=== PATIENT | female | born 1955 | race Caucasian/White ===

== ENCOUNTER 2017-03-06 12:42 | Inpatient (IN) ==
[2017-03-06] MEDS ORDERED: ONDANSETRON 4 MG/2 ML VIAL IV PRN (15:30)
--- NOTE | 2017-03-06 16:03 | Neurology Consult Note ---
History of Present Illness History of present illness: Ms. Dang is a 61 year old right-handed white lady with past medical history significant for ulcerative colitis admitted to the hospital with paraparesis and gait disorder. Apparently patient has been developing a 5 week history of lower extremity numbness and weakness. Patient received treatment with Humira after second dose she started developing ascending numbness paresthesias and weakness. After a couple of days she noticed numbness up to the chest below the breast line. She says this is been progressive. She initially started using a cane now requires a walker to get around. She goes to see Dr. Ellis for ulcerative colitis. A nerve conduction study/EMG is within normal limits. MRI of the thoracic spine reveals extensive a spinal cord signal suggestive of possible inflammatory process. For that reason she was admitted to the hospital and MRI of the brain and cervical spine was performed last night. MRI of the brain revealed diffuse periventricular white matter changes and one in the area may have some enhancement suggestive of inflammatory process MRI of the cervical spine did not reveal much pathology. 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 She is on high-dose of Solu-Medrol now. Home Medications Medication Instructions Recorded Confirmed Type Propranolol Tab [Inderal Tab] 20 mg PO TID 12/01/15 03/06/17 History Quetiapine Fumarate 50 mg PO BEDTIME 12/01/15 03/06/17 History Mesalamine [Apriso] 4 capsule PO DAILY 01/05/16 03/06/17 History Multivitamin [One Daily] 1 each PO DAILY 01/05/16 03/06/17 History Allergies Allergy/AdvReac Type Severity Reaction Status Date / Time Amoxicillin [From Amoxil] Allergy RASH Verified 02/24/17 14:27 morphine Allergy RASH Verified 02/24/17 14:27 Penicillins Allergy RASH Verified 01/05/16 12:24 12 point system: reviewed and no additional remarkable complaints except as stated Medical,Surgical,& Family Hx - Medical History Cardio: History of: Valvular Heart Disease (Mirtral valve prolaspe) Neurology: No history of: Seizures Gastrointestinal: History of: GI Problems (Ulcerative Colitis) - Surgical History Neurologic Surgeries: Patient denies: Neurologic Surgery Abdominal Surgeries: Surgical HX of: Colonoscopy Reproductive Surgeries: Surgical HX of;: Section, Hysterectomy - Family History Family History: Reports;: Family Heart Disease Denies;: Family Anesthesia Reaction, Family Cancer, Family Diabetes, Family Hypertension, Family Psychiatric Problems, Family Stroke - Social History Smoking Status: Never smoker Frequency of Alcohol Use: None Type of Drug Use: None Exam - Constitutional Exam: GENERAL: Patient is in no acute distress. NECK: Neck is supple. There is no JVD. No carotid bruits present. No thyroid masses. CVS: First and second heart sounds are normal. There is no S3 present. Regular rate and rhythm. RESPIRATORY: Lungs are clear to auscultation without any rales or rhonchi. ABDOMEN: Soft and non-tender. Bowel sounds are present. There is no hepatosplenomegaly. EXT: There is no palpable edema. Peripheral pulses are present. Skin: No rashes Central Nervous system: General: Alert, awake and Oriented x 3 Speech: Fluent Comprehension: Intact and normal Facial expressions: Normal Cranial Nerves: CN1/Olfactory: Normal CN II/ Optic: Normal, Visual Mckee unreliable CN III, and : MAGNUS & EOMI CN V: Normal & intact CN VII: face is symmetric CNVIII: Normal CN XI/X/XI/XII: Intact and Normal Motor: Bulk and Tone is normal. Strength in the right 3-4/5 Strength in the left 3-4/5 Sensory: Decreased with a sensory level at T4 Reflexes: Brisk and symmetrical Cerebellar function: Normal finger to nose and heel to camargo testing. Toes: Equivocal Gait: Significantly spastic gait and cannot walk without DME Results - Labs CBC & BMP: 03/06/17 15:55 03/06/17 15:55 Assessment and Plan (1) Gait disorder Status: Acute Assessment and plan: Given the history, annual exam and MRI findings the differential would include acute disseminated encephalomyelitis versus multiple sclerosis. Continue IV Solu-Medrol Spinal tap HIV test Consult PT and OT Consult TMR Thank you for the consult Current Visit: Yes
[2017-03-06 16:17] LABS: Basophils % 0.4 % (0.0-0.8); Eosinophils # 0.1 10*3/uL (0.0-0.87); Eosinophils % 0.7 % (0.00-10.9); Hematocrit 40.9 VOL% (35.7-47.0); Hemoglobin 14.2 GM/DL (12.0-16.0); Immature Granulocytes % 0.2 %; Immature Granulocytes Absolute 0.02 #; Lymphocytes # 3.3 10*3/uL (1.4-4.0); Lymphocytes % 40.3 % (21.3-54.2); Mean Corpuscular HGB Conc 34.7 GM/DL (32-36); Mean Corpuscular Hemoglobin 33 PG (27-34); Mean Corpuscular Volume 93.6 FL (87-102); Mean Platelet Volume 10.2 FL (9.6-12.0); Monocytes # 0.7 10*3/uL (0.11-0.8); Monocytes % 8.2 % (1.7-12.7); Neutrophils # 4.2 10*3/uL (1.4-7.4); Neutrophils % 50.2 % (38.7-73.9); Platelet Count 197 T/CUMM (130-400); Red Blood Count 4.37 MC/CUMM (3.8-5.5); Red Cell Distribution Width 11.7 % (9.3-17.3); White Blood Count 8.3 T/CUMM (4-12)
--- NOTE | 2017-03-06 16:39 | Hospitalist History & Physical ---
Assessment and Plan (1) History of ulcerative colitis Status: Acute Current Visit: Yes (2) Transverse myelitis Status: Acute Current Visit: Yes (3) Lower extremity weakness Status: Acute Current Visit: Yes (4) Lower extremity numbness Status: Acute Assessment and plan: Our plan for this patient 1. Admit patient our service 2. IV Solu-Medrol 3. Neurology consult 4. MRI of brain with and without 5. MRI cervical spine with and without 6. LP and diagnostic studies of spinal fluid 7. Plans are subject to the approval and adjustment by Dr. Ch Current Visit: Yes History of Present Illness Chief complaint: Lower extremity numbness and weakness History of present illness: Ms. Dang is a 61 year old female with past medical history consists consistent for ulcerative colitis and mitral valve prolapse who was sent over from Dr. Nathan Parker's office. Apparently patient has been developing a 5 week history of lower extremity numbness and weakness that this starts at approximately T12 and below. She says this is been progressive. She initially started using a cane now requires a walker to get around. She goes to see Dr. Guthrie for ulcerative colitis and originally they thought it was her marrow that she had been taking. It was stopped 4 weeks ago. She had a MRI done yesterday and one the differential diagnosis includes transverse myelitis patient was seen in clinic today by Dr. Ch and then we were requested to admit the patient. Patient reports that she has had a nerve conduction study last week Home Medications Medication Instructions Recorded Confirmed Type Propranolol Tab [Inderal Tab] 20 mg PO TID 12/01/15 03/06/17 History Quetiapine Fumarate 50 mg PO BEDTIME 12/01/15 03/06/17 History Mesalamine [Apriso] 4 capsule PO DAILY 01/05/16 03/06/17 History Multivitamin [One Daily] 1 each PO DAILY 01/05/16 03/06/17 History Allergies Allergy/AdvReac Type Severity Reaction Status Date / Time Amoxicillin [From Amoxil] Allergy RASH Verified 02/24/17 14:27 morphine Allergy RASH Verified 02/24/17 14:27 Penicillins Allergy RASH Verified 01/05/16 12:24 Medical,Surgical,& Family Hx - Medical History Cardio: History of: Valvular Heart Disease (Mirtral valve prolaspe) Neurology: No history of: Seizures Gastrointestinal: History of: GI Problems (Ulcerative Colitis) - Surgical History Neurologic Surgeries: Patient denies: Neurologic Surgery Abdominal Surgeries: Surgical HX of: Colonoscopy Reproductive Surgeries: Surgical HX of;: Section, Hysterectomy - Family History Family History: Reports;: Family Heart Disease Denies;: Family Anesthesia Reaction, Family Cancer, Family Diabetes, Family Hypertension, Family Psychiatric Problems, Family Stroke - Social History Smoking Status: Never smoker Frequency of Alcohol Use: None Type of Drug Use: None 12 point system: reviewed and no additional remarkable complaints except as stated Exam - Constitutional General appearance: normal weight - Head Head exam: Present: normal inspection - Eye Eye exam: Present: EOMI Pupils: Present: MAGNUS - ENT ENT exam: Present: normal exam - Neck Neck exam: Present: normal inspection - Respiratory Respiratory exam: Present: clear to auscultation bilaterally - Cardiovascular Cardiovascular exam: Present: regular rate and rhythm - GI/Abdominal GI/Abdominal exam: Present: normal bowel sounds - Extremities Exam Extremities exam: Present: normal inspection - Back Exam Back exam: Present: normal inspection - Neurological Exam Neurological exam: Present: other (Patient has numbness sensation going from her abdomen down to her feet. She is definitely weaker in extension and flexion of her lower extremities more predominantly on the right than the left. Patient has difficulty moving her toes on her right foot as compared to her left. 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
[2017-03-06 16:50] LABS: Albumin 4.3 G/DL (3.4-5.0); Bilirubin,Total 0.5 MG/DL (0.2-1.0); Calcium 9.5 MG/DL (8.5-10.1)
[2017-03-06 16:51] LABS: Osmolality,Calculated 282.3 MOS/KG (273-304); Potassium 3.8 MMOL/L (3.5-5.1)
[2017-03-06] MEDS: methylPREDNISolone SOD SUC INJ 1,000 MG in SODIUM CHLORIDE 0.9% 100 ML IV SCH (18:30)
--- NOTE | 2017-03-06 18:36 | Magnetic Resonance Report ---
MR cervical spine wo/w con Indication: Abnormal imaging. Comparison: MRI thoracic spine 03/06/2017. Technique: Multisequence multiplanar MR imaging of the cervical spine was performed prior to and following the administration of intravenous contrast. Findings: Again demonstrated within the cervical spinal cord, most noticeable posterior to the T1 thoracic vertebral body and C6-7 interspace as well as C4-5 interspace, areas of increased intramedullary signal are again apparent. Additional smaller foci are suggested T4. These don't distinctly expand the spinal cord. Following administration of intravenous contrast, there is evidence of enhancement most noticeable involving the lesion at C7. No significant narrowing of intervertebral disc space is present within the cervical spine. At C2-3, there is no evidence of significant central or neuroforaminal stenosis. At C3-4, left facet greater than right facet hypertrophic changes are present as are left greater than right uncovertebral joint osteophytes. Moderate stenosis of the left neuroforamen, minimal stenosis of the right neuroforamen, and no significant central stenosis are present. At C4-5, there is no evidence of significant central or neuroforaminal stenosis. At C5-6, moderately size right uncovertebral joint osteophyte and mild symmetric facet arthropathy are demonstrated. Moderate right neuroforaminal stenosis, minimal left neural foraminal stenosis, and minimal central stenosis are present. At C6-7, small left uncovertebral joint osteophyte is present. Mild stenosis of the left neuroforamen is present. No significant right neuroforaminal stenosis or central stenosis is demonstrated. At C7-T1, there is no evidence of significant central or neuroforaminal stenosis. The thyroid gland and anterior soft tissues and musculature of the neck demonstrate no significant abnormalities. The posterior paraspinous musculature is within normal limits. The arterial flow voids demonstrate no significant abnormalities. The other smaller lesions cephalad the T1 lesion may demonstrate minimal enhancement. This enhancement is most noticeable within the lateral cervical spinal cord at the C6 vertebral body level and bilateral cervical spinal cord at C5-6. Additional peripheral focus of enhancement on the right posterior to C4, C3-4 interspace, is demonstrated. Impression: 1. Areas of hyperintense signal present within the intramedullary spinal cord most noticeable posterior to T1, but additionally present as detailed appear to have longitudinal orientation and somewhat ill-defined margins. No distinct expansion of the goiter cystic changes are present. Differential considerations could include sarcoidosis, transverse myelitis, and multiple sclerosis. Other considerations could include acute disseminated encephalomyelitis, HIV, neoplasm is favored to be less likely. 03/06/2017 6:23 PM PROCEDURE INTERPRETED AT [facility] DEPARTMENT OF RADIOLOGY Final Report Signed by: Dr. Sukhdev Noonan
--- NOTE | 2017-03-06 18:40 | Magnetic Resonance Report ---
MR head/brain w and wo con Indication: Transverse myelitis. Comparison: CT head 02/24/2017. MRI cervical spine same date. Technique: Using 1.5 Latricia magnet, multisequence multiplanar MR imaging of the brain was performed prior to and following the administration of intravenous contrast. Findings: There are no areas of restricted diffusion within the brain. The sagittal T1 sequence demonstrates corpus callosum to be intact. The pituitary gland and optic nerves demonstrate no significant abnormalities. Cerebellar tonsils are slightly low-lying. Axial sequences demonstrate scattered foci of increased T2 and FLAIR signal throughout the cerebral white matter some of which within the anterior right frontal white matter are somewhat more focal. No associated blooming is demonstrated. No intraocular lesions are clearly demonstrated. No intra-axial contrast enhancement sequences were provided, somewhat limiting evaluation for enhancement. There does appear to be some enhancement within the white matter within the posterior right cerebral hemisphere as demonstrated on sagittal image #16. Sagittal FLAIR sequence demonstrates vertical orientation of some of the above lesions. No coronal contrast enhanced sequences were provided. Evaluation of the optic nerve is significantly limited. Increased T2 and FLAIR signal additionally present within the ru. The calvarium, paranasal sinuses, intraorbital contents, arterial flow voids, and the imaged muscles of mastication are unremarkable. Impression: 1. Significant limitation exists secondary to lack of inclusion of axial and/or coronal T1 postcontrast sequences. There may be a small focus of enhancement within the white matter of the posterior right cerebral hemisphere. Multiple white matter lesions are noted on axial T2 and FLAIR sequences most suggestive in this setting given the findings within the spinal cord of demyelinating disease. Active demyelination not excluded. Optic nerves cannot be evaluated. 03/06/2017 6:33 PM PROCEDURE INTERPRETED AT [facility] DEPARTMENT OF RADIOLOGY Final Report Signed by: Dr. Sukhdev Noonan
[2017-03-06] MEDS: PROPRANOLOL 20 MG TABLET PO SCH (21:23)
[2017-03-06] MEDS: QUEtiapine 25 MG TABLET PO SCH (21:24)
[2017-03-07] MEDS: ACETAMINOPHEN 325 MG TABLET PO PRN ×2 (01:39→14:53)
[2017-03-07] MEDS: MULTIVITAMIN (CENTRUM) TABLET PO SCH (08:38)
[2017-03-07] MEDS: PANTOPRAZOLE 40 MG TABLET PO SCH (08:38)
[2017-03-07] MEDS: PROPRANOLOL 20 MG TABLET PO SCH ×3 (08:38→20:17)
[2017-03-07 11:14] LABS: Appearance,CSF Clear; Lymphocytes,CSF 99 %; Monocytes,CSF 1 %; Red Blood Cell,CSF < 1 C/CUMM; White Blood Cell,CSF 133 C/CUMM
[2017-03-07 11:40] LABS: HIV Antigen/Antibody Result Nonreactive (Nonreactive)
--- NOTE | 2017-03-07 12:21 | Hospitalist Progress Note ---
Assessment and Plan - Time spent with patient Time spent with patient: Greater than 30 minutes (1) Transverse myelitis Status: Acute Assessment and plan: MRIs reviewed. Neurology consulted. Appreciate their recommendations. Current Visit: Yes Hospitalist: Subjective Interval history: Admitted for evaluation of MRI findings after having complaints of progressively worsening LE weakness. Patient states she feels better in general. LE weakness hasn't improved however. Exam - Constitutional Vitals: Period Temp Pulse Resp BP Sys/Kruse Pulse Ox Last 24 Hr 96.1 F-98.9 F 91-103 16-20 117-130/78-85 96-97 General appearance: no acute distress - Head Head exam: Present: normocephalic, atraumatic - Eye Eye exam: Present: EOMI Pupils: Present: MAGNUS - ENT ENT exam: Present: normal exam - Neck Neck exam: Present: normal inspection - Respiratory Respiratory exam: Present: clear to auscultation bilaterally. Absent: rhonchi, wheezes - Cardiovascular Cardiovascular exam: Present: regular rate and rhythm. Absent: gallop, rubs, systolic murmur - GI/Abdominal GI/Abdominal exam: Present: normal bowel sounds, soft. Absent: distended, firm , guarding, tenderness, rebound - Extremities Exam Extremities exam: Present: normal inspection. Absent: calf tenderness, edema Results - Labs CBC & BMP: 03/06/17 15:55 03/06/17 15:55 Lab Results: I have reviewed the past 24 hour labs
--- NOTE | 2017-03-07 12:23 | Post Interventional Procedure ---
Pre-op diagnosis: Transverse myelitis Post-op diagnosis: same Procedure: Fluoroscopy guided lumbar puncture Flouroscopy: 0.5 minutes Radiologist: Fidelina Valles Order Takers Supervisor: Angel White Anesthesia: local Specimens: other (9.5 ml clear CSF collected) Estimated blood loss: none Complications: none Condition: stable Description/Findings: Formal timeout was performed. The patient was placed prone on the fluoroscopy table. The low back was prepped and draped in a sterile fashion. A midline lumbar puncture was then performed at the L3-L4 interspace using a 20-gauge spinal needle. Fluoroscopic guidance was used and a captured image documents the needle position. An opening pressure of 7.5 cm water was obtained. 9.5 cc clear, colorless CSF was withdrawn and sent to laboratory. Needle was removed and a bandage placed the puncture site. Fluoroscopy time: 0.5 minutes. Assessment and Plan - Time spent with patient Time spent with patient: Less than 30 minutes
--- NOTE | 2017-03-07 14:06 | Interventional Radiology Rpt ---
History: Transverse myelitis Date: 03/07/2017 Study: Fluoroscopy guided lumbar puncture Comparison exam: No previous similar Lumbar puncture with fluoroscopy Description: Formal timeout was performed. The patient was placed prone on the fluoroscopy table. The low back was prepped and draped in a sterile fashion. A midline lumbar puncture was then performed at the L3-L4 interspace using a 20-gauge spinal needle. Fluoroscopic guidance was used and a captured image documents the needle position. An opening pressure of 7.5 cm water was obtained. 9.5 cc clear, colorless CSF was withdrawn and sent to laboratory. Needle was removed and a bandage placed the puncture site. Fluoroscopy time: 0.5 minutes. Fluoroscopic images captured and archived: 1 Impression: Lumbar puncture as described. PROCEDURE INTERPRETED AT [facility] DEPARTMENT OF RADIOLOGY Final Report Signed by: Dr. Fidelina Valles
[2017-03-07] MEDS: methylPREDNISolone SOD SUC INJ 1,000 MG in SODIUM CHLORIDE 0.9% 100 ML IV SCH (17:05)
[2017-03-07] MEDS: QUEtiapine 25 MG TABLET PO SCH (20:17)
[2017-03-08 06:59] LABS: Basophils % 0.1 % (0.0-0.8); Hematocrit 39.6 VOL% (35.7-47.0); Hemoglobin 13.7 GM/DL (12.0-16.0); Immature Granulocytes % 0.7 %; Lymphocytes # 1.9 10*3/uL (1.4-4.0); Mean Corpuscular HGB Conc 34.6 GM/DL (32-36); Mean Corpuscular Hemoglobin 32 PG (27-34); Mean Corpuscular Volume 92.3 FL (87-102); Mean Platelet Volume 10.9 FL (9.6-12.0); Monocytes # 0.5 10*3/uL (0.11-0.8); Monocytes % 3.1 % (1.7-12.7); Neutrophils # 12.9 10*3/uL (1.4-7.4); Neutrophils % 84.1 % (38.7-73.9); Platelet Count 207 T/CUMM (130-400); Red Blood Count 4.29 MC/CUMM (3.8-5.5); Red Cell Distribution Width 11.9 % (9.3-17.3); White Blood Count 15.4 T/CUMM (4-12)
[2017-03-08 07:38] LABS: Calcium 9.2 MG/DL (8.5-10.1); Osmolality,Calculated 290.1 MOS/KG (273-304); Potassium 3.8 MMOL/L (3.5-5.1)
[2017-03-08] MEDS: methylPREDNISolone SOD SUC INJ 1,000 MG in SODIUM CHLORIDE 0.9% 100 ML IV SCH (10:31)
[2017-03-08] MEDS: MULTIVITAMIN (CENTRUM) TABLET PO SCH (10:32)
[2017-03-08] MEDS: PROPRANOLOL 20 MG TABLET PO SCH ×3 (10:32→20:24)
[2017-03-08] MEDS: PANTOPRAZOLE 40 MG TABLET PO SCH (10:32)
--- NOTE | 2017-03-08 10:39 | Hospitalist Progress Note ---
Assessment and Plan - Time spent with patient Time spent with patient: Greater than 30 minutes (1) Transverse myelitis Status: Acute Assessment and plan: MRIs reviewed. Neurology consulted. Appreciate their recommendations. Current Visit: Yes (2) History of ulcerative colitis Status: Acute Assessment and plan: We will start the patient on Asacol. Current Visit: Yes Hospitalist: Subjective Interval history: Ms. Christian states she is feeling better and is regaining strength in her lower extremities. Exam - Constitutional Vitals: Period Temp Pulse Resp BP Sys/Kruse Pulse Ox Last 24 Hr 97.6 F-98.2 F 69-93 18-20 112-131/66-86 93-98 General appearance: no acute distress - Head Head exam: Present: normocephalic, atraumatic - Eye Eye exam: Present: EOMI Pupils: Present: MAGNUS - ENT ENT exam: Present: normal exam - Neck Neck exam: Present: normal inspection - Respiratory Respiratory exam: Present: clear to auscultation bilaterally. Absent: rhonchi, wheezes - Cardiovascular Cardiovascular exam: Present: regular rate and rhythm. Absent: gallop, rubs, systolic murmur - GI/Abdominal GI/Abdominal exam: Present: normal bowel sounds, soft. Absent: distended, firm , guarding, tenderness, rebound - Extremities Exam Extremities exam: Present: normal inspection. Absent: calf tenderness, edema - Neurological Exam Neurological exam: Present: other (Right lower extremity is slightly weaker than the left. Left is 5- out of 5 and right is 4+ out of 5.) Results - Labs CBC & BMP: 03/08/17 05:59 03/08/17 05:59 Lab Results: I have reviewed the past 24 hour labs
--- NOTE | 2017-03-08 12:15 | Pathology Report from [facility] ---
[facility] ACCESSION # : [id number] PATIENT NAME : Marlene Dang ORDERING DR : Ok Ch MD CLINICAL HX: Transverse Myelitis POST-OP DX: Same SPECIMEN INFO: Fluid,CSF - 2 mls clear CLASS: II CLASS COMMENTS: Mildly increased lymphocytes CLASS LEGEND: CLASS 0 Material inadequate for diagnosis because of (see comment) CLASS I Absence of atypical or abnormal cells CLASS II Atypical Cytology but no evidence of malignancy CLASS III Cytology suggestive of but not conclusive for malignancy CLASS IV Cytology strongly suggestive of malignancy CLASS V Cytology conclusive for malignancy COLLECTED DATE: 03/07/2017 [facility] REPORT DATE: 03/08/2017 ELECTRONICALLY SIGNED BY: Sukhdev Ontiveros M.D. 03/08/2017 - 9:21:[facility]
--- NOTE | 2017-03-08 15:21 | Neurology Progress Note ---
Neurology - PN : Subjective Interval history: Patient seems to be doing better. No new problems reported. Feeling stronger and her legs. Spinal tap reveals WBC 133, lymphocytes 99%, total protein 46, total glucose 84. All the cultures so far negative. Exam (Progress Note) - Constitutional Vitals: Period Temp Pulse Resp BP Sys/Kruse Pulse Ox Last 24 Hr 97.6 F-97.9 F 69-88 18-20 114-131/66-86 93-97 Exam: GENERAL: Patient is in no acute distress. NECK: Neck is supple. There is no JVD. No carotid bruits present. No thyroid masses. CVS: First and second heart sounds are normal. There is no S3 present. Regular rate and rhythm. RESPIRATORY: Lungs are clear to auscultation without any rales or rhonchi. ABDOMEN: Soft and non-tender. Bowel sounds are present. There is no hepatosplenomegaly. EXT: There is no palpable edema. Peripheral pulses are present. Skin: No rashes Central Nervous system: General: Alert, awake and Oriented x 3 Speech: Fluent Comprehension: Intact and normal Facial expressions: Normal Cranial Nerves: CN1/Olfactory: Normal CN II/ Optic: Normal, Visual Mckee unreliable CN III, and : MAGNUS & EOMI CN V: Normal & intact CN VII: face is symmetric CNVIII: Normal CN XI/X/XI/XII: Intact and Normal Motor: Bulk and Tone is normal. Strength in the right 3-4/5 Strength in the left 3-4/5 Sensory: Decreased with a sensory level at T4 Reflexes: Brisk and symmetrical Cerebellar function: Normal finger to nose and heel to camargo testing. Toes: Equivocal Gait: Significantly spastic gait and cannot walk without DME Results - Labs CBC & BMP: 03/08/17 05:59 03/08/17 05:59 Assessment and Plan (1) Gait disorder Status: Acute Assessment and plan: So far LP is suggestive of acute disseminated encephalomyelitis. Still awaiting for further CSF results to differentiate from MS. Continue IV Solu-Medrol for total 7 days followed by tapering dosage of prednisone. We will consult TMR Current Visit: Yes
[2017-03-08] MEDS: MESALAMINE 800 MG TABLET PO SCH ×2 (15:48→20:24)
[2017-03-08] MEDS: QUEtiapine 25 MG TABLET PO SCH (20:24)
[2017-03-08] MEDS: MESALAMINE PO SCH (20:26)
[2017-03-08] MEDS: ACETAMINOPHEN 325 MG TABLET PO PRN (23:44)
[2017-03-09] MEDS: methylPREDNISolone SOD SUC INJ 1,000 MG in SODIUM CHLORIDE 0.9% 100 ML IV SCH (09:26)
[2017-03-09] MEDS: PROPRANOLOL 20 MG TABLET PO SCH ×3 (09:28→20:15)
[2017-03-09] MEDS: PANTOPRAZOLE 40 MG TABLET PO SCH (09:28)
[2017-03-09] MEDS: MULTIVITAMIN (CENTRUM) TABLET PO SCH (09:28)
[2017-03-09] MEDS: MESALAMINE 800 MG TABLET PO SCH ×3 (09:34→20:15)
--- NOTE | 2017-03-09 14:43 | Hospitalist Progress Note ---
Assessment and Plan - Time spent with patient Time spent with patient: Greater than 30 minutes (1) Transverse myelitis Status: Acute Assessment and plan: MRIs reviewed. Neurology consulted. Appreciate their recommendations. Current Visit: Yes (2) History of ulcerative colitis Status: Acute Assessment and plan: We will start the patient on Asacol. Current Visit: Yes Hospitalist: Subjective Interval history: No complaints or overnight events. Exam - Constitutional Vitals: Period Temp Pulse Resp BP Sys/Kruse Pulse Ox Last 24 Hr 96.9 F-98.3 F 54-85 18-20 99-144/61-88 92-99 General appearance: no acute distress - Head Head exam: Present: normocephalic, atraumatic - Eye Eye exam: Present: EOMI Pupils: Present: MAGNUS - ENT ENT exam: Present: normal exam - Neck Neck exam: Present: normal inspection - Respiratory Respiratory exam: Present: clear to auscultation bilaterally. Absent: rhonchi, wheezes - Cardiovascular Cardiovascular exam: Present: regular rate and rhythm. Absent: gallop, rubs, systolic murmur - GI/Abdominal GI/Abdominal exam: Present: normal bowel sounds, soft. Absent: distended, firm , guarding, tenderness, rebound - Extremities Exam Extremities exam: Present: normal inspection. Absent: calf tenderness, edema Results - Labs CBC & BMP: 03/08/17 05:59 03/08/17 05:59 Lab Results: I have reviewed the past 24 hour labs
[2017-03-09] MEDS: QUEtiapine 25 MG TABLET PO SCH (20:15)
[2017-03-10] MEDS: MULTIVITAMIN (CENTRUM) TABLET PO SCH (09:46)
[2017-03-10] MEDS: PROPRANOLOL 20 MG TABLET PO SCH ×3 (09:46→20:39)
[2017-03-10] MEDS: MESALAMINE 800 MG TABLET PO SCH ×3 (09:46→20:38)
[2017-03-10] MEDS: PANTOPRAZOLE 40 MG TABLET PO SCH (09:47)
[2017-03-10] MEDS: methylPREDNISolone SOD SUC INJ 1,000 MG in SODIUM CHLORIDE 0.9% 100 ML IV SCH (09:47)
--- NOTE | 2017-03-10 16:23 | Hospitalist Progress Note ---
Assessment and Plan - Time spent with patient Time spent with patient: Greater than 30 minutes (1) Transverse myelitis Status: Acute Assessment and plan: MRIs reviewed. Neurology consulted. Appreciate their recommendations. Current Visit: Yes (2) History of ulcerative colitis Status: Acute Assessment and plan: We will start the patient on Asacol. Current Visit: Yes Hospitalist: Subjective Interval history: No complaints overnight events. Exam - Constitutional Vitals: Period Temp Pulse Resp BP Sys/Kruse Pulse Ox Last 24 Hr 97 F-97.7 F 51-75 18-20 107-138/59-69 94-98 General appearance: no acute distress - Head Head exam: Present: normocephalic, atraumatic - Eye Eye exam: Present: EOMI Pupils: Present: MAGNUS - ENT ENT exam: Present: normal exam - Neck Neck exam: Present: normal inspection - Respiratory Respiratory exam: Present: clear to auscultation bilaterally. Absent: rhonchi, wheezes - Cardiovascular Cardiovascular exam: Present: regular rate and rhythm. Absent: gallop, rubs, systolic murmur - GI/Abdominal GI/Abdominal exam: Present: normal bowel sounds, soft. Absent: distended, firm , guarding, tenderness, rebound - Extremities Exam Extremities exam: Present: normal inspection. Absent: calf tenderness, edema Results - Labs CBC & BMP: 03/08/17 05:59 03/08/17 05:59 Lab Results: I have reviewed the past 24 hour labs
[2017-03-10] MEDS: QUEtiapine 25 MG TABLET PO SCH (20:39)
[2017-03-11 07:56] LABS: M. Tuberculosis PCR Result Negative (Negative); M. Tuberculosis PCR Source CSF
[2017-03-11] MEDS: PROPRANOLOL 20 MG TABLET PO SCH ×3 (08:53→20:41)
[2017-03-11] MEDS: PANTOPRAZOLE 40 MG TABLET PO SCH (08:53)
[2017-03-11] MEDS: MULTIVITAMIN (CENTRUM) TABLET PO SCH (08:53)
[2017-03-11] MEDS: MESALAMINE 800 MG TABLET PO SCH ×3 (08:53→20:41)
[2017-03-11] MEDS: methylPREDNISolone SOD SUC INJ 1,000 MG in SODIUM CHLORIDE 0.9% 100 ML IV SCH (08:54)
--- NOTE | 2017-03-11 10:13 | Hospitalist Progress Note ---
Assessment and Plan (1) Transverse myelitis Status: Acute Assessment and plan: Impression: 1. Possible transverse myelitis related to Humira 2. Ulcerative colitis Plan: Await further recommendations from physical therapy, neurology, and insurance verification regarding duration of Solu-Medrol, transition to prednisone, and need for intensive inpatient physical therapy. This note was completed using [employer] voice recognition software. There may be braider tender errors as a result. Current Visit: Yes Hospitalist: Subjective Interval history: Follow-up possible transverse myelitis. The patient reports that she continues to improve with regard to function and sensation in the lower extremities. She has been able to get up and move about in the room. She still has some decreased sensation in the legs and feet. The latest PT note is from 03/08, but we do not have anything since then. Neurology had suggested that she might want to go to the rehab unit, but it is not clear if they will accept her insurance. Furthermore, with her rate of improvement, she might not need intensive inpatient rehab. She is continuing on IV Solu- Medrol. Exam - Constitutional Vitals: Period Temp Pulse Resp BP Sys/Kurse Pulse Ox Last 24 Hr 97.2 F-98 F 48-75 18-20 113-145/61-77 95-99 Vital signs are noted above. Heart is regular with no murmur or gallop. Lungs are clear with no rales or wheezes. She is able to move all 4 extremities with equal power, and no motor deficits noted with regard to strength. She is awake and alert. Results - Labs CBC & BMP: 03/08/17 05:59 03/08/17 05:59
--- NOTE | 2017-03-11 12:35 | Neurology Progress Note ---
Neurology - PN : Subjective Interval history: Patient has improved remarkably. She is walking much better with a walker. Has a better balance and more steady on her feet. She is getting some sensations back in the lower extremities. Herpes PCR, TB PCR are all negative. All the cultures, Loyda ink and cryptococcus antigen are all negative. Oligoclonal bands are still pending. I suspect is strongly acute disseminated encephalomyelitis rather than multiple sclerosis. Exam (Progress Note) - Constitutional Vitals: Period Temp Pulse Resp BP Sys/Kruse Pulse Ox Last 24 Hr 97.2 F-98.6 F 46-58 18-20 113-145/61-77 96-99 Exam: GENERAL: Patient is in no acute distress. NECK: Neck is supple. There is no JVD. No carotid bruits present. No thyroid masses. CVS: First and second heart sounds are normal. There is no S3 present. Regular rate and rhythm. RESPIRATORY: Lungs are clear to auscultation without any rales or rhonchi. ABDOMEN: Soft and non-tender. Bowel sounds are present. There is no hepatosplenomegaly. EXT: There is no palpable edema. Peripheral pulses are present. Skin: No rashes Central Nervous system: General: Alert, awake and Oriented x 3 Speech: Fluent Comprehension: Intact and normal Facial expressions: Normal Cranial Nerves: CN1/Olfactory: Normal CN II/ Optic: Normal, Visual Mckee unreliable CN III, and : MAGNUS & EOMI CN V: Normal & intact CN VII: face is symmetric CNVIII: Normal CN XI/X/XI/XII: Intact and Normal Motor: Bulk and Tone is normal. Strength in the right 4/5 Strength in the left 4/5 Sensory: Decreased with a sensory level at T4 Reflexes: Brisk and symmetrical Cerebellar function: Normal finger to nose and heel to camargo testing. Toes: Equivocal Gait: Spastic gait however walking with the help of a rolling walker much better. Results - Labs CBC & BMP: 03/08/17 05:59 03/08/17 05:59 Assessment and Plan (1) Gait disorder Status: Acute Assessment and plan: This has improved significantly. Patient would like to go home rather than inpatient rehab and do outpatient rehab, and I am okay with that. Current Visit: Yes (2) ADEM (acute disseminated encephalomyelitis) Status: Acute Assessment and plan: We will put her on prednisone with tapering dosage after tomorrow's IV Solu- Medrol dose. We will plan to discharge home tomorrow Schedule outpatient PT and OT. Current Visit: Yes
[2017-03-11] MEDS: QUEtiapine 25 MG TABLET PO SCH (20:41)
[2017-03-12] MEDS: PANTOPRAZOLE 40 MG TABLET PO SCH (09:10)
[2017-03-12] MEDS: MESALAMINE 800 MG TABLET PO SCH (09:10)
[2017-03-12] MEDS: methylPREDNISolone SOD SUC INJ 1,000 MG in SODIUM CHLORIDE 0.9% 100 ML IV SCH (09:10)
[2017-03-12] MEDS: PROPRANOLOL 20 MG TABLET PO SCH (09:10)
[2017-03-12] MEDS: MULTIVITAMIN (CENTRUM) TABLET PO SCH (09:10)
--- NOTE | 2017-03-12 09:40 | Discharge Summary ---
Hospital Course - Hospital Course Hospital Course: Discharge diagnosis: Acute disseminated encephalomyelitis Inflammatory bowel disease The patient presented with a progressive gait disorder. She was seen by neurology. Lumbar puncture was performed. The patient responded well to steroids. Clinical impression was acute disseminated encephalomyelitis. Initially, we were planning to send the patient to inpatient rehab, but she did so well that we decided to let her go home on tapering steroids. Medication reconciliation has been performed. Regular diet. Activity as tolerated. Follow-up with neurology in the next couple of weeks. Diagnosis - Discharge Diagnosis (1) Transverse myelitis Status: Acute Discharge Plan - Discharge Data Disposition: Disch To Home/Self Care Condition at Discharge: Stable Discharge Diet: advance to your usual diet Activity: resume usual activities as tolerated Hygiene: no restrictions Weight Bearing at Discharge: full weight bearing Driving: not until seen by doctor Contact your physician if you experience:: fever over 101 - Discharge Medications New predniSONE TAB [PredniSONE] 20 mg PO DAILY #10 tablet Continue Quetiapine Fumarate 50 mg PO BEDTIME Propranolol Tab [Inderal Tab] 20 mg PO TID Mesalamine [Apriso] 4 capsule PO DAILY Multivitamin [One Daily] 1 each PO DAILY - Follow Up or Referral - Forms/Instructions Exam - Constitutional Vitals: Period Temp Pulse Resp BP Sys/Kruse Pulse Ox Last 24 Hr 97.6 F-98.8 F 53-87 18-20 138-154/52-82 94-98 Vital signs are noted above. Heart is regular with no murmur or gallop. Chest is clear with no rales or wheezes. She is up and about in the room. She is awake and alert Discharge Results Procedures and tests throughout hospitalization: Pending Orders 03/07/17 10:30 AFB Culture/Smears Stat MENDEZ CSF([facility]) Stat Fungal Culture w/ Prep Routine Herpes Simplex Virus,PCR,CSF Stat IgG/Albumin Ratio, CSF Stat Oligoclonal Banding Stat Toxoplasma gondi PCR CSF Stat Viral Culture, Non-Respiratory Routine DS: Provider Date of admission: 03/06/17 14:47 Primary care physician: Sunny Mathis DO Attending physician on admission: Beltran Conroy MD Consults: 03/06/17 15:26 Consult to Dietitian [CONS] Routine Reason for Dietitian: Other 03/06/17 15:30 Consult to Physician [CONS] Routine Comment: Consulting Provider: [place] When should Consulting Provider be notified: Now 03/06/17 15:40 Consult to Case Mgmt/Social Srvs [CONS] Routine Reason for Case Mgmt/Social Srvs: Discharge Planning Consult to Physical Therapy [CONS] Routine Reason for Physical Therapy: Evaluate and Treat Discharging clinician: Chad Bowden MD Expected date of discharge: 03/12/17
[2017-03-12 10:25] LABS: IgG/Albumin Ratio, CSF 0.16 (<=0.21)
[2017-03-12 10:51] VITALS: BP 134/85
[2017-03-12 14:46] LABS: CSF Olig Bands Interpretation 5 bands (<4); Oligoclonal Bands CSF Bands 8 bands; Oligoconal Banding Serum Bands 3 bands
== END 2017-03-12 10:40 | disposition home or self-care (01) | DRG 98 ==
LOC: N.2E → OBSVTOIN 14:47 → SUATTDRO 14:47
PROVIDERS: ADMIT Internal Medicine; ATTEND Internal Medicine Geriatric Medicine

== ENCOUNTER 2017-10-24 14:12 | Inpatient (IN) ==
[2017-10-24 14:58] LABS: Basophils # 0.1 10*3/uL (0.0-0.2); Basophils % 0.4 % (0.0-0.8); Eosinophils # 0.1 10*3/uL (0.0-0.87); Eosinophils % 0.6 % (0.00-10.9); Hematocrit 36.2 VOL% (35.7-47.0); Hemoglobin 11.9 GM/DL (12.0-16.0); Immature Granulocytes % 1.1 %; Immature Granulocytes Absolute 0.15 #; Lymphocytes # 2.5 10*3/uL (1.4-4.0); Lymphocytes % 18.8 % (21.3-54.2); Mean Corpuscular HGB Conc 32.9 GM/DL (32-36); Mean Corpuscular Hemoglobin 32 PG (27-34); Mean Corpuscular Volume 98.4 FL (87-102); Mean Platelet Volume 9.1 FL (9.6-12.0); Monocytes # 1.8 10*3/uL (0.11-0.8); Monocytes % 13.4 % (1.7-12.7); Neutrophils # 8.8 10*3/uL (1.4-7.4); Neutrophils % 65.7 % (38.7-73.9); Platelet Count 402 T/CUMM (130-400); Red Blood Count 3.68 MC/CUMM (3.8-5.5); Red Cell Distribution Width 13.9 % (9.3-17.3); White Blood Count 13.4 T/CUMM (4-12)
[2017-10-24 15:11] LABS: PT Patient Result 10.8 SECS; Partial Thromboplastin Time 25.7 SECS (0-40)
[2017-10-24 15:22] LABS: Alanine Aminotransferase 11 U/L (13-56); Alkaline Phosphatase 49 U/L (45-117); Aspartate Amino Transferase 11 U/L (0-37); Blood Urea Nitrogen 10 MG/DL (7-18); Calcium 9.3 MG/DL (8.5-10.1); Glucose 140 MG/DL (74-106); Magnesium 1.9 MG/DL (1.8-2.4); Potassium 3.8 MMOL/L (3.5-5.1); Sodium 136 MMOL/L (136-145); Total Protein 6.8 G/DL (6.4-8.3); Troponin I Only < 0.015 NG/ML (0.00-0.045)
[2017-10-24] MEDS ORDERED: ONDANSETRON 4 MG/2 ML VIAL IV STA (19:30)
[2017-10-24] MEDS ORDERED: SODIUM CHLORIDE 0.9% 1,000 ML IV STA (19:30)
[2017-10-24] MEDS ORDERED: HYDROmorphone 2 MG/1 ML VIAL IV STA (19:30)
[2017-10-24] MEDS ORDERED: metroNIDAZOLE INJ 500 MG in PREMIX 1 EACH IV STA (19:30)
[2017-10-24] MEDS ORDERED: LEVOFLOXACIN INJ 750 MG in PREMIX 1 EACH IV STA (19:30)
[2017-10-24] MEDS ORDERED: PANTOPRAZOLE 40 MG VIAL IV STA (19:30)
[2017-10-24] MEDS ORDERED: methylPREDNISolone SOD SUC 125 MG/2 ML VIAL IV STA (19:33)
[2017-10-24] MEDS ORDERED: metroNIDAZOLE 500 MG/100 ML PREMIX IV ONE (20:41)
[2017-10-24] MEDS ORDERED: ONDANSETRON 4 MG/2 ML VIAL ONE (20:41)
[2017-10-24] MEDS ORDERED: LEVOFLOXACIN INJ 150 ML IV ONE (20:41)
[2017-10-24] MEDS ORDERED: PANTOPRAZOLE 40 MG VIAL IV ONE (20:41)
[2017-10-24] MEDS ORDERED: HYDROmorphone 2 MG/1 ML VIAL ONE (20:41)
[2017-10-24] MEDS ORDERED: methylPREDNISolone SOD SUC 125 MG/2 ML VIAL ONE (20:42)
[2017-10-24] MEDS ORDERED: ACETAMINOPHEN 325 MG TABLET PO PRN (22:26)
[2017-10-24] MEDS ORDERED: ONDANSETRON 4 MG/2 ML VIAL IV PRN (22:26)
[2017-10-24] MEDS ORDERED: HYDROmorphone 2 MG/1 ML VIAL IV PRN (22:26)
[2017-10-24] MEDS ORDERED: ZALEPLON 5 MG CAPSULE PO PRN (22:26)
[2017-10-24] MEDS: PROPRANOLOL 20 MG TABLET PO SCH (22:36)
[2017-10-24] MEDS: QUEtiapine 25 MG TABLET PO SCH (22:36)
[2017-10-24] MEDS: DEXTROSE 5% NACL 0.9% 1,000 ML IV SCH (22:39)
[2017-10-25 00:54] LABS: Ammonia 15 UMOL/L (11-32)
[2017-10-25] MEDS: DEXTROSE 5% NACL 0.9% 1,000 ML IV SCH ×4 (06:18→20:04)
[2017-10-25 06:58] LABS: Basophils % 0.2 % (0.0-0.8); Hematocrit 30.9 VOL% (35.7-47.0); Hemoglobin 9.8 GM/DL (12.0-16.0); Immature Granulocytes % 1.5 %; Immature Granulocytes Absolute 0.07 #; Lymphocytes # 0.9 10*3/uL (1.4-4.0); Lymphocytes % 19.2 % (21.3-54.2); Mean Corpuscular HGB Conc 31.7 GM/DL (32-36); Mean Corpuscular Hemoglobin 32 PG (27-34); Mean Platelet Volume 9.1 FL (9.6-12.0); Monocytes # 0.1 10*3/uL (0.11-0.8); Monocytes % 1.9 % (1.7-12.7); Neutrophils # 3.7 10*3/uL (1.4-7.4); Neutrophils % 77.2 % (38.7-73.9); Platelet Count 293 T/CUMM (130-400); Red Blood Count 3.09 MC/CUMM (3.8-5.5); Red Cell Distribution Width 14.1 % (9.3-17.3); White Blood Count 4.8 T/CUMM (4-12)
[2017-10-25 07:20] LABS: Lactic Acid 0.9 MMOL/L (0.4-2.0)
[2017-10-25 07:24] LABS: Blood Urea Nitrogen 10 MG/DL (7-18); Calcium 7.5 MG/DL (8.5-10.1); Glucose 229 MG/DL (74-106); Magnesium 1.9 MG/DL (1.8-2.4); Osmolality,Calculated 286.3 MOS/KG (273-304); Sodium 141 MMOL/L (136-145); Troponin I Only < 0.015 NG/ML (0.00-0.045)
[2017-10-25 08:22] LABS: Apearance,Urine CLEAR (Clear); Bacteria,Urine Occasional /HPF (Few); Bilirubin,Urine Negative (Negative); Blood, Urine Negative (Negative); Glucose,Urine (UA) >=500 mg/dL (Negative); Ketones,Urine 20 mg/dL (Negative); Mucus,Urine Occasional /LPF (Occasional); Nitrite,Urine Negative (Negative); Protein,Urine Negative; RBC,Urine 1 /HPF (0-4); Squamous Epithelial Cell,Urine Occasional /HPF (0-10); Urine Color Yellow (Yellow); Urine Specific Gravity 1.024 (1.001-1.035); Urine Urobilinogen < 2.0 EU/DL (0.2-1.0); WBC,Urine 1 /HPF (0-6)
[2017-10-25] MEDS ORDERED: MESALAMINE 1.5 GM PO SCH (09:00)
[2017-10-25] MEDS ORDERED: predniSONE 20 MG TABLET PO SCH (09:00)
[2017-10-25] MEDS ORDERED: PNEUMOCOCCAL VACCINE (13 VALENT) 0.5 ML SYRINGE IM ONE (09:29)
[2017-10-25] MEDS ORDERED: INFLUENZA VIRUS VACCINE 0.5 ML SYRINGE IM ONE (09:29)
[2017-10-25] MEDS: BUDESONIDE 3 MG CAPSULE PO SCH (09:53)
[2017-10-25] MEDS: PANTOPRAZOLE 40 MG TABLET PO SCH (09:53)
[2017-10-25] MEDS: PROPRANOLOL 20 MG TABLET PO SCH ×2 (09:53→20:48)
[2017-10-25] MEDS: CIPROFLOXACIN 500 MG TABLET PO SCH (20:47)
[2017-10-25] MEDS: QUEtiapine 25 MG TABLET PO SCH (20:47)
[2017-10-26] MEDS: DEXTROSE 5% NACL 0.9% 1,000 ML IV SCH ×2 (03:45→03:46)
[2017-10-26 05:12] LABS: Basophils % 0.1 % (0.0-0.8); Hematocrit 24.3 VOL% (35.7-47.0); Hemoglobin 7.7 GM/DL (12.0-16.0); Immature Granulocytes % 1.3 %; Immature Granulocytes Absolute 0.11 #; Lymphocytes # 2.2 10*3/uL (1.4-4.0); Lymphocytes % 26.9 % (21.3-54.2); Mean Corpuscular HGB Conc 31.7 GM/DL (32-36); Mean Corpuscular Hemoglobin 33 PG (27-34); Mean Corpuscular Volume 102.5 FL (87-102); Mean Platelet Volume 9.4 FL (9.6-12.0); Monocytes # 1.1 10*3/uL (0.11-0.8); Neutrophils # 4.8 10*3/uL (1.4-7.4); Neutrophils % 58.7 % (38.7-73.9); Platelet Count 261 T/CUMM (130-400); Red Blood Count 2.37 MC/CUMM (3.8-5.5); Red Cell Distribution Width 14.6 % (9.3-17.3); White Blood Count 8.2 T/CUMM (4-12)
[2017-10-26 06:19] LABS: Band Neutrophils 6 % (0-10); Hypochromasia 1+; Lymphocytes 26 % (20-55); Platelet Estimate Adequate; Segmented Neutrophils 59 % (50-85); Total Cells Counted 100
[2017-10-26 06:20] LABS: Giant Platelets Few
[2017-10-26] MEDS: CIPROFLOXACIN 500 MG TABLET PO SCH ×2 (10:02→20:29)
[2017-10-26] MEDS: BUDESONIDE 3 MG CAPSULE PO SCH (10:03)
[2017-10-26] MEDS: PANTOPRAZOLE 40 MG TABLET PO SCH (10:03)
[2017-10-26] MEDS: PROPRANOLOL 20 MG TABLET PO SCH ×2 (10:06→20:29)
[2017-10-26] MEDS ORDERED: SODIUM CHLORIDE 0.9% 1,000 ML IV PRN ×2 (13:15→13:24)
[2017-10-26] MEDS: QUEtiapine 25 MG TABLET PO SCH (20:29)
[2017-10-27 01:42] LABS: Basophils % 0.2 % (0.0-0.8); Eosinophils % 0.2 % (0.00-10.9); Hematocrit 33.4 VOL% (35.7-47.0); Immature Granulocytes % 0.9 %; Immature Granulocytes Absolute 0.07 #; Lymphocytes # 2.7 10*3/uL (1.4-4.0); Lymphocytes % 32.8 % (21.3-54.2); Mean Corpuscular Hemoglobin 31 PG (27-34); Mean Corpuscular Volume 97.7 FL (87-102); Mean Platelet Volume 8.9 FL (9.6-12.0); Monocytes # 1.1 10*3/uL (0.11-0.8); Monocytes % 13.9 % (1.7-12.7); Neutrophils # 4.3 10*3/uL (1.4-7.4); Platelet Count 237 T/CUMM (130-400); Red Blood Count 3.42 MC/CUMM (3.8-5.5); Red Cell Distribution Width 16.8 % (9.3-17.3); White Blood Count 8.2 T/CUMM (4-12)
[2017-10-27 01:44] LABS: Hemoglobin 10.7 GM/DL (12.0-16.0)
[2017-10-27 02:04] LABS: Osmolality,Calculated 288.7 MOS/KG (273-304); Potassium 3.9 MMOL/L (3.5-5.1)
[2017-10-27] MEDS: CIPROFLOXACIN 500 MG TABLET PO SCH (09:01)
[2017-10-27] MEDS: PANTOPRAZOLE 40 MG TABLET PO SCH (09:02)
[2017-10-27] MEDS: PROPRANOLOL 20 MG TABLET PO SCH (09:02)
[2017-10-27] MEDS: BUDESONIDE 3 MG CAPSULE PO SCH (09:02)
[2017-10-27 12:47] VITALS: BP 125/76
== END 2017-10-27 15:37 | disposition home or self-care (01) | DRG 386 ==
LOC: N.ED 14:12 → SUATTDRO 20:32 → N.EDINP 20:32 → N.3E 21:17
PROVIDERS: ADMIT Family Medicine; ATTEND Internal Medicine